=== PATIENT | male | born 1960 | race Caucasian/White ===

== ENCOUNTER 2024-03-15 15:35 | Inpatient (IN) | payer MEDICAID, OTHER ==
[~2024-03-15] VITALS: Ht 175.3 cm; Wt 40.4 kg
[2024-03-15] VITALS (7 sets, daily range): BP systolic 99; BP diastolic 71; TEMP 97.2; O2SAT 88–98
[~2024-03-15 15:35] MED LIST: MORP10SO PO; NICO-676 TD; PRED20TA PO
[2024-03-15] MEDS ORDERED: ALBUTEROL FS 2.5 MG/3 ML VIAL.NEB ONE (15:50)
[2024-03-15] MEDS ORDERED: IPRATROPIUM NEB FS 0.5 MG/2.5 ML AMPUL.NEB ONE (15:50)
[2024-03-15] MEDS ORDERED: Magnesium 1GM/D5W 100ML PREMIX 100 ML IV ONE (15:51)
[2024-03-15] MEDS ORDERED: methylPREDNISolone SOD SUCC 125 MG/2ML VIAL ONE (15:51)
[2024-03-15] MEDS: ALBUTEROL FS 2.5 MG/3 ML VIAL.NEB CONTNEB ONE (15:56)
[2024-03-15] MEDS: IPRATROPIUM NEB FS 0.5 MG/2.5 ML AMPUL.NEB NEB ONE (15:57)
[2024-03-15] MEDS: methylPREDNISolone SOD SUCC 125 MG/2ML VIAL IV ONE (16:00)
[2024-03-15] MEDS: Magnesium 1GM/D5W 100ML PREMIX 200 ML IV ONE (16:00)
[2024-03-15 16:16] LABS: BASOPHILS % (AUTO) 0.1 % (0.0-2.0); EOSINOPHILS # (AUTO) 0.1 K/uL (0.0-0.7); EOSINOPHILS % (AUTO) 0.7 % (0.0-6.0); HEMATOCRIT 29 % (39-51); HEMOGLOBIN 9.6 g/dL (13.5-17.5); LYMPHOCYTES # (AUTO) 1.3 K/uL (0.8-4.8); LYMPHOCYTES % (AUTO) 8.7 % (20.0-44.0); MEAN CORPUSCULAR HEMOGLOBIN 29 PG (26.0-33.0); MEAN CORPUSCULAR HGB CONC 33 g/dl (31.0-36.0); MEAN CORPUSCULAR VOLUME 90 fL (80-96); MONOCYTES # (AUTO) 0.9 K/uL (0.1-1.30); MONOCYTES % (AUTO) 5.6 % (2.0-12.0); NEUTROPHILS # (AUTO) 13.1 K/uL (1.8-8.9); NEUTROPHILS % (AUTO) 84.9 % (43.0-81.0); PLATELET COUNT (AUTO) 252 K/uL (150-450); RED BLOOD CELL COUNT(AUTO) 3.25 MIL/uL (4.5-6.0); RED CELL DISTRIBUTION WIDTH 21.5 % (11.5-15.0); WHITE BLOOD COUNT (AUTO) 15.4 K/uL (4.3-11.0)
[2024-03-15 16:19] LABS: CALCIUM, SERUM 8.4 mg/dL (8.5-10.1); CARBON DIOXIDE 36 mmol/L (21-32); CHLORIDE 94 mmol/L (98-107); CREATININE 0.5 mg/dL (0.6-1.3); GLUCOSE 160 mg/dL (74-106); POTASSIUM 3.5 mmol/L (3.5-5.1); SODIUM SERUM 132 mmol/L (136-145); UREA NITROGEN, BLOOD 20 mg/dL (7-18)
[2024-03-15 16:22] LABS: INR 0.94 (0.91-1.10); PARTIAL THROMBOPLASTIN TIME 22.9 SEC (24.3-34.3); PROTHROMBIN TIME 9.7 SECS (9.2-11.1)
[2024-03-15] MEDS: AZITHROMYCIN 500 MG in IV D5W 250 ML IV ONE (16:26)
[2024-03-15 16:32] LABS: ALANINE AMINOTRANSFERASE 84 U/L (12-78); ALBUMIN 2.7 g/dL (3.4-5.0); ALKALINE PHOSPHATASE 81 U/L (46-116); ASPARTATE AMINOTRANSFERASE 21 U/L (15-37); BILIRUBIN,DIRECT 0.1 mg/dL (0.0-0.2); BILIRUBIN,TOTAL 0.7 mg/dL (0.2-1.0); NT-PRO BNP 287 pg/mL (0-125); TOTAL PROTEIN, SERUM 5.9 g/dL (6.4-8.2)
[2024-03-15] MEDS: CEFTRIAXONE 1GM BAG (ER ONLY) 1 GM/50 ML PIGGYBACK IV ONE (17:03)
[2024-03-15] MEDS ORDERED: TIOT4MIS2 IH (17:10)
[2024-03-15] MEDS ORDERED: INSU100I40 SQ ×2 (17:10)
[2024-03-15] MEDS ORDERED: DILT180C93 PO (17:10)
[2024-03-15] MEDS ORDERED: DIGO250T PO (17:10)
[2024-03-15] MEDS ORDERED: HYDR-4303 PO (17:10)
[2024-03-15] MEDS ORDERED: PANT40TA2 PO (17:10)
[2024-03-15] MEDS ORDERED: INSU100I30 SQ (17:10)
[2024-03-15] MEDS ORDERED: IPRA3AMP23 IH (17:10)
[2024-03-15] MEDS ORDERED: MOME13HF2 IH (17:10)
[2024-03-15] MEDS ORDERED: ALBU8.5H8 IH (17:10)
[2024-03-15] MEDS ORDERED: TIZA4TAB5 PO (17:10)
[2024-03-15] MEDS ORDERED: ONDANSETRON HCL/PF 4 MG/2 ML VIAL IVP PRN (19:00)
[2024-03-15] MEDS ORDERED: Z GUARD REMEDY 4 OZ OINT TP PRN (19:00)
[2024-03-15 19:07] LABS: ABG BASE EXCESS 8.6 mmol/L; ABG OXYGEN SATURATION 91.2 % (92.0-98.5); ABG PCO2 44.7 mmHg (35.0-45.0); ABG PH 7.485 (7.350-7.450); ABG PO2 58.3 mmHg (75.0-100.0); ABG TOTAL HEMOGLOBIN 9.4 G/dL (13.5-18.0); COHb 0.3 % (0.5-1.5); MetHb 0.1 % (0.0-1.5); O2Hb 90.8 % (94.0-97.0); SITE, ABG Right Radial; VENT MODE, BG NASAL CANNULA
[2024-03-15] MEDS: IV NS 0.9% 1,000 ML IV ONE (19:25)
[2024-03-15] MEDS: LEVOFLOXACIN 750 MG /D5W 150ML 750 MG in PREMIX 1 EA IV SCH (19:27)
[2024-03-15] MEDS: LEVALBUTEROL HCL NEB 1.25 MG/0.5 ML VIAL.NEB NEB SCH (19:30)
[2024-03-15 19:42] LABS: BAND % (MANUAL) 3 % (0.0-5.0); LYMPHOCYTES % (MANUAL) 7 % (16-48); MONOCYTES % (MANUAL) 5 % (0-11.0); NEUTROPHILS % (MANUAL) 85 (42-76); PLATELET ESTIMATE ADEQUATE
[2024-03-15 19:43] LABS: ANISOCYTOSIS 1+
[2024-03-15 19:44] LABS: OVALOCYTES RARE
[2024-03-15] MEDS: DIGOXIN 0.25 MG TABLET PO SCH (19:47)
[2024-03-15] MEDS ORDERED: RIVAROXABAN 10 MG TABLET PO SCH (20:00)
[2024-03-15] MEDS: ALBUTEROL FS 2.5 MG/3 ML VIAL.NEB NEB SCH (20:05)
[2024-03-15] MEDS: IPRATROPIUM NEB FS 0.5 MG/2.5 ML AMPUL.NEB NEB SCH (20:05)
[2024-03-15 20:46] LABS: LACTIC ACID 2.8 mmol/L (0.4-2.0)
[2024-03-15] MEDS ORDERED: ENOXAPARIN SODIUM 40 MG/0.4 ML DISP.SYRIN SQ SCH (21:00)
[2024-03-15] MEDS: DOXYCYCLINE 100 MG in IV D5W 100 ML IV SCH (21:09)
[2024-03-15] MEDS: ENOXAPARIN SODIUM 40 MG/0.4 ML DISP.SYRIN SQ SCH (21:10)
[2024-03-15] MEDS: BLOOD SUGAR DIAGNOSTIC 1 EACH STRIP IN SCH (22:20)
[2024-03-15] MEDS: INSULIN GLARGINE, 100 UNIT/ML CARTRIDGE SQ SCH (22:22)
[2024-03-15] MEDS: INSULIN REGULAR, HUMAN 100 UNIT/ML 3 ML VIAL SQ PRN (22:23)
[2024-03-16] VITALS (25 sets, daily range): BP systolic 102–124; BP diastolic 63–72; TEMP 97.3–99; O2SAT 87–95
[2024-03-16] MEDS: methylPREDNISolone SOD SUCC 40 MG/ML VIAL IV SCH (00:44)
[2024-03-16] MEDS: LORAZEPAM 1 MG TABLET PO PRN (02:24)
[2024-03-16 07:14] LABS: HEMATOCRIT 24 % (39-51); LYMPHOCYTES # (AUTO) 0.2 K/uL (0.8-4.8); LYMPHOCYTES % (AUTO) 1.4 % (20.0-44.0); MEAN CORPUSCULAR HEMOGLOBIN 30 PG (26.0-33.0); MEAN CORPUSCULAR HGB CONC 34 g/dl (31.0-36.0); MEAN CORPUSCULAR VOLUME 89 fL (80-96); MONOCYTES # (AUTO) 0.2 K/uL (0.1-1.30); MONOCYTES % (AUTO) 1.6 % (2.0-12.0); NEUTROPHILS # (AUTO) 14.6 K/uL (1.8-8.9); PLATELET COUNT (AUTO) 249 K/uL (150-450); RED BLOOD CELL COUNT(AUTO) 2.66 MIL/uL (4.5-6.0); RED CELL DISTRIBUTION WIDTH 21.8 % (11.5-15.0)
[2024-03-16 07:29] LABS: CALCIUM, SERUM 8.2 mg/dL (8.5-10.1); CREATININE 0.4 mg/dL (0.6-1.3); MAGNESIUM 2.3 mg/dL (1.8-2.4); PHOSPHORUS 3.9 mg/dL (2.5-4.9); POTASSIUM 4.3 mmol/L (3.5-5.1)
[2024-03-16] MEDS: BUDESONIDE RESPULE INH 0.5 MG/2 ML AMPUL.NEB NEB SCH (07:56)
[2024-03-16 08:06] LABS: THYROID STIMULATING HORMONE 0.13 uIU/mL (0.358-3.74)
[2024-03-16] MEDS: DILTIAZEM HCL CD 180 MG PO SCH (09:10)
[2024-03-16] MEDS: NICOTINE PATCH (14MG) 14 MG PATCH.TD24 TD SCH (09:10)
[2024-03-16] MEDS: PANTOPRAZOLE 40 MG TABLET.DR PO SCH (09:15)
[2024-03-16] MEDS: VANCOMYCIN HCL 1.25 GM in IV D5W 250 ML IV SCH (12:36)
[2024-03-16] MEDS: SOD FERRIC GLUC 125 MG in IV NS 0.9% 100 ML IV SCH (14:02)
[2024-03-16] MEDS: MEROPENEM 1 G in IV NS 0.9% 100 ML IV SCH (14:08)
[2024-03-16] MEDS: VANCOMYCIN 1 GM in IV D5W 250ml IV SCH (20:20)
[2024-03-16] MEDS: oxyCODONE/APAP (5/325 MG) 1 UDTAB TABLET PO PRN (21:02)
[2024-03-16] MEDS: TIZANIDINE HCL 4 MG TABLET PO PRN (23:44)
[2024-03-17] VITALS (23 sets, daily range): BP systolic 99–120; BP diastolic 52–73; TEMP 97.9–98.8; O2SAT 92–98
[2024-03-17 07:32] LABS: BASOPHILS % (AUTO) 0.1 % (0.0-2.0); HEMATOCRIT 26 % (39-51); HEMOGLOBIN 8.6 g/dL (13.5-17.5); LYMPHOCYTES # (AUTO) 0.3 K/uL (0.8-4.8); LYMPHOCYTES % (AUTO) 1.5 % (20.0-44.0); MEAN CORPUSCULAR HEMOGLOBIN 30 PG (26.0-33.0); MEAN CORPUSCULAR HGB CONC 34 g/dl (31.0-36.0); MEAN CORPUSCULAR VOLUME 89 fL (80-96); MONOCYTES # (AUTO) 0.7 K/uL (0.1-1.30); MONOCYTES % (AUTO) 3.6 % (2.0-12.0); NEUTROPHILS # (AUTO) 18.5 K/uL (1.8-8.9); NEUTROPHILS % (AUTO) 94.8 % (43.0-81.0); PLATELET COUNT (AUTO) 260 K/uL (150-450); RED BLOOD CELL COUNT(AUTO) 2.88 MIL/uL (4.5-6.0); WHITE BLOOD COUNT (AUTO) 19.5 K/uL (4.3-11.0)
[2024-03-17 07:48] LABS: CALCIUM, SERUM 8.4 mg/dL (8.5-10.1); CREATININE 0.5 mg/dL (0.6-1.3); MAGNESIUM 2.3 mg/dL (1.8-2.4); PHOSPHORUS 4.1 mg/dL (2.5-4.9)
[2024-03-17] MEDS: AZITHROMYCIN 500 MG in IV D5W 250 ML IV SCH (16:04)
[2024-03-18] VITALS (23 sets, daily range): BP systolic 103–141; BP diastolic 64–74; TEMP 97.9–98.5; O2SAT 90–98
[2024-03-18 07:16] LABS: CALCIUM, SERUM 7.8 mg/dL (8.5-10.1); CREATININE 0.4 mg/dL (0.6-1.3); PHOSPHORUS 3.4 mg/dL (2.5-4.9); POTASSIUM 3.8 mmol/L (3.5-5.1)
[2024-03-18 07:28] LABS: BASOPHILS # (AUTO) 0.1 K/uL (0.0-0.2); BASOPHILS % (AUTO) 0.4 % (0.0-2.0); HEMATOCRIT 24 % (39-51); HEMOGLOBIN 8.1 g/dL (13.5-17.5); LYMPHOCYTES # (AUTO) 0.2 K/uL (0.8-4.8); MEAN CORPUSCULAR HEMOGLOBIN 30 PG (26.0-33.0); MEAN CORPUSCULAR HGB CONC 34 g/dl (31.0-36.0); MEAN CORPUSCULAR VOLUME 89 fL (80-96); MONOCYTES # (AUTO) 0.7 K/uL (0.1-1.30); MONOCYTES % (AUTO) 3.9 % (2.0-12.0); NEUTROPHILS # (AUTO) 17.7 K/uL (1.8-8.9); NEUTROPHILS % (AUTO) 94.7 % (43.0-81.0); PLATELET COUNT (AUTO) 261 K/uL (150-450); RED BLOOD CELL COUNT(AUTO) 2.68 MIL/uL (4.5-6.0); RED CELL DISTRIBUTION WIDTH 21.5 % (11.5-15.0); WHITE BLOOD COUNT (AUTO) 18.7 K/uL (4.3-11.0)
[2024-03-18 12:29] LABS: HIV-1 p24 ANTIGEN NON REACTIVE (NONREACTIVE); HIV-1/2 ANTIBODY NON REACTIVE (NONREACTIVE)
[2024-03-19] VITALS (22 sets, daily range): BP systolic 106–120; BP diastolic 66–74; TEMP 97.9–98.6; O2SAT 88–98
[2024-03-19 06:55] LABS: BASOPHILS # (AUTO) 0.1 K/uL (0.0-0.2); BASOPHILS % (AUTO) 0.4 % (0.0-2.0); HEMATOCRIT 24 % (39-51); HEMOGLOBIN 8.2 g/dL (13.5-17.5); LYMPHOCYTES # (AUTO) 0.2 K/uL (0.8-4.8); MEAN CORPUSCULAR HEMOGLOBIN 30 PG (26.0-33.0); MEAN CORPUSCULAR HGB CONC 34 g/dl (31.0-36.0); MEAN CORPUSCULAR VOLUME 90 fL (80-96); MONOCYTES # (AUTO) 0.6 K/uL (0.1-1.30); MONOCYTES % (AUTO) 3.6 % (2.0-12.0); NEUTROPHILS # (AUTO) 16.2 K/uL (1.8-8.9); PLATELET COUNT (AUTO) 272 K/uL (150-450); RED BLOOD CELL COUNT(AUTO) 2.71 MIL/uL (4.5-6.0); RED CELL DISTRIBUTION WIDTH 21.5 % (11.5-15.0)
[2024-03-19 06:59] LABS: CALCIUM, SERUM 7.7 mg/dL (8.5-10.1); CREATININE 0.5 mg/dL (0.6-1.3); MAGNESIUM 2.4 mg/dL (1.8-2.4); PHOSPHORUS 2.7 mg/dL (2.5-4.9)
[2024-03-19] MEDS: GLUCERNA SHAKE 237 ML CAN PO SCH (08:18)
[2024-03-19] MEDS: MAGNESIUM HYDROXIDE 30 ML UDC PO PRN (09:16)
[2024-03-19] MEDS: FUROSEMIDE 20 MG/2 ML VIAL IV SCH (10:44)
[2024-03-19] MEDS: DOCUSATE SODIUM 100 MG CAPSULE PO SCH (16:23)
[2024-03-19 16:43] LABS: URINE SODIUM, RANDOM 100 mmol/l (40-220)
[2024-03-19] MEDS: SENNOSIDES 8.6 MG TABLET PO SCH (21:20)
[2024-03-19] MEDS: VANCOMYCIN 750 MG in IV D5W 250 ML IV SCH (21:56)
[2024-03-19] MEDS: SODIUM CL FOR INHALATION 3% 15 ML VIAL.NEB IH ONE (22:00)
[2024-03-20] VITALS (23 sets, daily range): BP systolic 110–131; BP diastolic 63–81; TEMP 97.7–98.6; O2SAT 90–99
[2024-03-20] MEDS: LORAZEPAM 0.5 MG TABLET PO PRN (00:21)
[2024-03-20 07:25] LABS: CALCIUM, SERUM 8.1 mg/dL (8.5-10.1); CREATININE 0.5 mg/dL (0.6-1.3)
[2024-03-20 07:56] LABS: THYROID STIMULATING HORMONE 0.14 uIU/mL (0.358-3.74); URIC ACID 2.9 mg/dL (2.6-7.2)
[2024-03-20] MEDS: DULOXETINE HCL 30 MG CAPSULE.DR PO SCH (08:58)
[2024-03-20 10:03] LABS: MAGNESIUM 2.9 mg/dL (1.8-2.4); PHOSPHORUS 2.9 mg/dL (2.5-4.9)
[2024-03-20] MEDS ORDERED: FUROSEMIDE 20 MG/2 ML VIAL IV SCH (11:00)
[2024-03-20 15:42] LABS: OSMOLALITY,URINE 362 mOS/kg (340-1090)
[2024-03-20 15:46] LABS: APPEARANCE,URINE CLEAR (CLEAR); BILIRUBIN,URINE NEGATIVE (NEGATIVE); BLOOD, URINE NEGATIVE Ery/uL (NEGATIVE); COLOR,URINE YELLOW (YELLOW); KETONES,URINE TRACE mg/dL (NEGATIVE); LEUKOCYTE ESTERASE ,URINE NEGATIVE (NEGATIVE); NITRITE, URINE NEGATIVE (NEGATIVE); PROTEIN,URINE NEGATIVE (NEGATIVE); UGLUCOSE 1+ mg/dL (NEGATIVE); UROBILINOGEN,URINE 0.2 EU/dL (0.2)
[2024-03-20 15:48] LABS: EOSINOPHIL,URINE None Seen
[2024-03-20 16:32] LABS: CREATININE, URINE 30.5 MG/DL (30.0-125.0); URINE TOTAL PROTEIN 41.3 mg/dL (0-11.9)
[2024-03-21] VITALS (24 sets, daily range): BP systolic 109–140; BP diastolic 81–92; TEMP 97.6–98.5; O2SAT 94–98
[2024-03-21] MEDS: FUROSEMIDE 20 MG/2 ML VIAL IV SCH (08:21)
[2024-03-22] VITALS (23 sets, daily range): BP systolic 116–139; BP diastolic 69–87; TEMP 98–98.5; O2SAT 87–99
[2024-03-22 09:31] LABS: BASOPHILS % (AUTO) 0.1 % (0.0-2.0); HEMATOCRIT 29 % (39-51); HEMOGLOBIN 10.1 g/dL (13.5-17.5); LYMPHOCYTES # (AUTO) 0.2 K/uL (0.8-4.8); LYMPHOCYTES % (AUTO) 1.5 % (20.0-44.0); MEAN CORPUSCULAR HEMOGLOBIN 32 PG (26.0-33.0); MEAN CORPUSCULAR HGB CONC 35 g/dl (31.0-36.0); MEAN CORPUSCULAR VOLUME 91 fL (80-96); MONOCYTES # (AUTO) 0.6 K/uL (0.1-1.30); MONOCYTES % (AUTO) 4.3 % (2.0-12.0); NEUTROPHILS # (AUTO) 13.4 K/uL (1.8-8.9); NEUTROPHILS % (AUTO) 94.1 % (43.0-81.0); PLATELET COUNT (AUTO) 293 K/uL (150-450); RED BLOOD CELL COUNT(AUTO) 3.19 MIL/uL (4.5-6.0); RED CELL DISTRIBUTION WIDTH 21.1 % (11.5-15.0); WHITE BLOOD COUNT (AUTO) 14.2 K/uL (4.3-11.0)
[2024-03-22 09:39] LABS: CALCIUM, SERUM 8.1 mg/dL (8.5-10.1); CREATININE 0.4 mg/dL (0.6-1.3); MAGNESIUM 2.3 mg/dL (1.8-2.4); POTASSIUM 3.6 mmol/L (3.5-5.1)
[2024-03-22] MEDS: ACETYLCYSTEINE 20% SOLN 800 MG/4 ML VIAL NEB SCH (14:31)
[2024-03-22] MEDS: ACETAMINOPHEN 325 MG TABLET PO PRN (21:24)
[2024-03-23] VITALS (17 sets, daily range): BP systolic 109–146; BP diastolic 76–90; TEMP 97.5–99.1; O2SAT 88–98
[2024-03-24] VITALS (22 sets, daily range): BP systolic 118–141; BP diastolic 73–86; TEMP 97.8–98.6; O2SAT 86–98
[2024-03-25] VITALS (21 sets, daily range): BP systolic 125–137; BP diastolic 79–98; TEMP 97.1–98.7; O2SAT 89–100
[2024-03-25] MEDS: MEROPENEM 1 G in IV NS 0.9% 100 ML IV SCH (12:14)
[2024-03-26] VITALS (23 sets, daily range): BP systolic 103–140; BP diastolic 75–98; TEMP 97.1–99; O2SAT 91–96
[2024-03-26] MEDS: DEXTROSE 50%-WATER 50 ML DISP.SYRIN IV PRN (07:42)
[2024-03-26] MEDS: methylPREDNISolone SOD SUCC 40 MG/ML VIAL IV SCH (08:43)
[2024-03-27] VITALS (24 sets, daily range): BP systolic 101–142; BP diastolic 73–94; TEMP 98–99.1; O2SAT 88–100
[2024-03-27 07:16] LABS: EOSINOPHILS # (AUTO) 0.1 K/uL (0.0-0.7); EOSINOPHILS % (AUTO) 0.4 % (0.0-6.0); HEMATOCRIT 32 % (39-51); HEMOGLOBIN 11.1 g/dL (13.5-17.5); LYMPHOCYTES # (AUTO) 1.1 K/uL (0.8-4.8); LYMPHOCYTES % (AUTO) 5.4 % (20.0-44.0); MEAN CORPUSCULAR HEMOGLOBIN 32 PG (26.0-33.0); MEAN CORPUSCULAR HGB CONC 35 g/dl (31.0-36.0); MEAN CORPUSCULAR VOLUME 91 fL (80-96); MONOCYTES % (AUTO) 5.2 % (2.0-12.0); NEUTROPHILS # (AUTO) 17.6 K/uL (1.8-8.9); PLATELET COUNT (AUTO) 276 K/uL (150-450); RED CELL DISTRIBUTION WIDTH 21.4 % (11.5-15.0); WHITE BLOOD COUNT (AUTO) 19.8 K/uL (4.3-11.0)
[2024-03-27 10:22] LABS: CALCIUM, SERUM 7.7 mg/dL (8.5-10.1); CREATININE 0.2 mg/dL (0.6-1.3); POTASSIUM 3.4 mmol/L (3.5-5.1)
[2024-03-27 15:40] LABS: ANISOCYTOSIS 1+; LYMPHOCYTES % (MANUAL) 4 % (16-48); MONOCYTES % (MANUAL) 2 % (0-11.0); NEUTROPHILS % (MANUAL) 94 (42-76); PLATELET ESTIMATE ADEQUATE
[2024-03-28] VITALS (27 sets, daily range): BP systolic 89–137; BP diastolic 54–84; TEMP 97.3–99; O2SAT 80–100
[2024-03-28] MEDS: ALBUTEROL HALF STRENGTH 1.25 MG/3 ML VIAL.NEB NEB PRN (11:15)
[2024-03-29] VITALS (23 sets, daily range): BP systolic 100–127; BP diastolic 61–84; TEMP 97.7–99; O2SAT 92–99
[2024-03-30] VITALS (17 sets, daily range): BP systolic 97–127; BP diastolic 67–84; TEMP 97.3–98.7; O2SAT 0–100
[2024-03-31] VITALS (24 sets, daily range): BP systolic 121–143; BP diastolic 73–94; TEMP 97.5–98.4; O2SAT 93–97
[2024-03-31] MEDS: methylPREDNISolone SOD SUCC 40 MG/ML VIAL IV SCH (08:22)
[2024-03-31 12:14] LABS: ALBUMIN 2.2 g/dL (3.4-5.0); BILIRUBIN,TOTAL 0.7 mg/dL (0.2-1.0); CREATININE 0.4 mg/dL (0.6-1.3); MAGNESIUM 2.1 mg/dL (1.8-2.4); PHOSPHORUS 1.8 mg/dL (2.5-4.9); POTASSIUM 3.9 mmol/L (3.5-5.1)
[2024-03-31 12:26] LABS: BASOPHILS % (AUTO) 0.2 % (0.0-2.0); HEMATOCRIT 33 % (39-51); HEMOGLOBIN 11.3 g/dL (13.5-17.5); LYMPHOCYTES # (AUTO) 0.3 K/uL (0.8-4.8); LYMPHOCYTES % (AUTO) 1.1 % (20.0-44.0); MEAN CORPUSCULAR HEMOGLOBIN 31 PG (26.0-33.0); MEAN CORPUSCULAR HGB CONC 34 g/dl (31.0-36.0); MEAN CORPUSCULAR VOLUME 90 fL (80-96); MONOCYTES # (AUTO) 0.9 K/uL (0.1-1.30); MONOCYTES % (AUTO) 3.9 % (2.0-12.0); NEUTROPHILS # (AUTO) 22.4 K/uL (1.8-8.9); NEUTROPHILS % (AUTO) 94.8 % (43.0-81.0); PLATELET COUNT (AUTO) 331 K/uL (150-450); RED BLOOD CELL COUNT(AUTO) 3.66 MIL/uL (4.5-6.0); RED CELL DISTRIBUTION WIDTH 20.9 % (11.5-15.0); WHITE BLOOD COUNT (AUTO) 23.6 K/uL (4.3-11.0)
[2024-03-31] MEDS: K PHOS NEUTRAL 250 MG TABLET PO ONE (16:05)
[2024-04-01] VITALS (17 sets, daily range): BP systolic 107–133; BP diastolic 76–89; TEMP 97.5–98.6; O2SAT 93–97
[2024-04-01 07:52] LABS: BASOPHILS % (AUTO) 0.2 % (0.0-2.0); EOSINOPHILS % (AUTO) 0.1 % (0.0-6.0); HEMATOCRIT 32 % (39-51); LYMPHOCYTES # (AUTO) 1.1 K/uL (0.8-4.8); MEAN CORPUSCULAR HEMOGLOBIN 32 PG (26.0-33.0); MEAN CORPUSCULAR HGB CONC 35 g/dl (31.0-36.0); MEAN CORPUSCULAR VOLUME 92 fL (80-96); MONOCYTES # (AUTO) 1.2 K/uL (0.1-1.30); MONOCYTES % (AUTO) 5.5 % (2.0-12.0); NEUTROPHILS # (AUTO) 20.2 K/uL (1.8-8.9); NEUTROPHILS % (AUTO) 89.2 % (43.0-81.0); PLATELET COUNT (AUTO) 330 K/uL (150-450); RED BLOOD CELL COUNT(AUTO) 3.45 MIL/uL (4.5-6.0); RED CELL DISTRIBUTION WIDTH 20.7 % (11.5-15.0); WHITE BLOOD COUNT (AUTO) 22.6 K/uL (4.3-11.0)
[2024-04-01 08:15] LABS: CALCIUM, SERUM 8.2 mg/dL (8.5-10.1); CREATININE 0.3 mg/dL (0.6-1.3); PHOSPHORUS 2.6 mg/dL (2.5-4.9)
[2024-04-01 08:28] LABS: POTASSIUM 2.8 mmol/L (3.5-5.1)
[2024-04-01] MEDS: POTASSIUM CHLORIDE 20 MEQ TAB.PRT.SR PO SCH (09:56)
[2024-04-01 09:58] LABS: ABG BASE EXCESS 6.5 mmol/L (-2.0-2.0); ABG OXYGEN SATURATION 93.6 % (92.0-98.5); ABG PH 7.504 (7.340-7.440); ABG PO2 66.9 mmHg (75.0-100.0); ABG TOTAL HEMOGLOBIN 12.4 G/dL (14.0-18.0); AaDO2 173.5 mmHg; COHb 0.2 % (0.5-1.5); MetHb 0.3 % (0.0-1.5); O2Hb 93.1 % (94.0-97.0); SITE, ABG Right Radial; VENT MODE, BG HFNC 40L 40%
[2024-04-01] MEDS ORDERED: LORA-259 PO (10:23)
[2024-04-01] MEDS ORDERED: methylPREDNISolone SOD SUCC IV (10:23)
[2024-04-01] MEDS ORDERED: POTA20TA83 PO (10:23)
[2024-04-01] MEDS ORDERED: ENOX40DI SQ (10:23)
[2024-04-01] MEDS ORDERED: FURO10VI IV (10:23)
== END 2024-04-01 19:04 | DRG 720 ==
LOC: ER 16:06 → TELE1 18:43
PROVIDERS: ADMIT Nurse Practitioner Family; ATTEND Internal Medicine
PROC: 05HA33Z Insertion of Infusion Device into Left Brachial Vein, Percutaneous Approach (ICD-10-PCS; principal; 2024-03-17)
PROC: B54NZZA Ultrasonography of Left Upper Extremity Veins, Guidance (ICD-10-PCS; 2024-03-17)
DX: A41.9 Sepsis, unspecified organism (principal); J96.01 Acute respiratory failure with hypoxia; E44.0 Moderate protein-calorie malnutrition; J15.9 Unspecified bacterial pneumonia; E87.3 Alkalosis; E88.09 Other disorders of plasma-protein metabolism, not elsewhere classified; Z99.81 Dependence on supplemental oxygen; E87.1 Hypo-osmolality and hyponatremia; J44.0 Chronic obstructive pulmonary disease with (acute) lower respiratory infection; I48.91 Unspecified atrial fibrillation; D64.9 Anemia, unspecified; E11.9 Type 2 diabetes mellitus without complications; J44.1 Chronic obstructive pulmonary disease with (acute) exacerbation; R65.20 Severe sepsis without septic shock; K21.9 Gastro-esophageal reflux disease without esophagitis; Z85.51 Personal history of malignant neoplasm of bladder; Z66 Do not resuscitate; Z20.822 Contact with and (suspected) exposure to COVID-19; F33.2 Major depressive disorder, recurrent severe without psychotic features; Z79.01 Long term (current) use of anticoagulants; Z87.891 Personal history of nicotine dependence; Z68.1 Body mass index [BMI] 19.9 or less, adult
CPT/HCPCS: 31720; 36410; 36415; 36600; 71045-TC; 76700-TC; 80048-TC; 80053-TC; 80061-TC; 80076-TC; 80202-TC; 82570-TC; 82728-TC; 82803-TC; 82962-TC; 83540-TC; 83605-TC; 83735-TC; 83880; 83935-TC; 84100-TC; 84300-TC; 84443-TC; 84484-TC; 84550-TC; 85025-TC; 85730-TC; 86803; 86850-TC; 87040-TC; 87081-TC; 87449; 87806; 93971-TC; 94640-TC; 94668-TC; 94760-TC; 94762-TC; 94799-TC; 97110-TC; 97112-TC; 97530-TC; A4216; A4217; A4218; A4223; G0378; J0456; J0696; J1650; J1815; J1940; J1956; J2185; J2916; J2919; J3370; J3371; J3475; J3490; J7030; J7040; J7050; J7060